=== PATIENT | female | born 1960 | race Caucasian/White ===

== ENCOUNTER → 2017-11-24 | Day surgery (SDC) | payer OTHER ==
[~2017-11-24] VITALS: Ht 167.6 cm; Wt 60.2 kg
[~2017-11-24] MED LIST: ACETAMINOPHEN 1000 MG/100 ML 100 ML IV ONE; ACETAMINOPHEN/HYDROcodone 325 MG/5 MG TAB PO PRN; APREPITANT 40 MG CAP ONE; BUPIVACAINE/EPINEPHRINE 0.5% PF 10 ML VIAL ONE; CHLORHEXIDINE GLUCONATE 2 % 1 PACK (2 CLOTHS) TOPICAL PRN; CYMB30CA PO; DAILTAB38 PO; DEXAMETHASONE SOD PHOS 4 MG/ML VIAL IV ONE; DO NOT ADM ANY ANTICOAGULANT DRUGS PRN; ESTR1TAB PO; FAMOTIDINE 20 MG/2 ML VIAL ONE; GLYCOPYRROLATE 1 MG/5 ML SYRINGE IV PUSH ONE; KETOROLAC TROMETHAMINE 30 MG/ML (IVP) VIAL IV PUSH ONE; KETOROLAC TROMETHAMINE 30 MG/ML (IVP) VIAL IVP PRN; LACTATED RINGER'S 1000 ML INJ 1,000 ML IV ONE; LACTATED RINGER'S 1000 ML INJ 1,000 ML IV SCH; LACTATED RINGER'S 1000 ML IV PRN; LIDOCAINE HCL 1% PF 5 ML SYRINGE OTHER ONE; METOPROLOL TARTRATE 25 MG TAB PO PRN; MIDAZOLAM HCL 2 MG/2 ML VIAL ONE; MORPHINE SULFATE 8 MG/ML INJ IV PUSH PRN; NALOXONE HCL 0.4 MG/ML AMP IV PUSH PRN; NEOSTIGMINE 5 MG/5 ML SYRINGE IV PUSH ONE; ONDANSETRON HCL 4 MG/2 ML VIAL IV ONE; ONDANSETRON ODT 4 MG TAB ONE; ONDANSETRON ODT 4 MG TAB SL PRN; POVIDONE IODINE 5% (ANTISEPSIS KIT) 4 APPLICATIONS EACH NARE PRN; PROPOFOL 200 MG/20 ML AMP IV ONE; Post-op Orders (for Pharmacy) XX ONE; ROCURONIUM INJ 50 MG/5 ML SYRINGE IV PUSH ONE; SODIUM CHLORID 0.9% 500 ML IV PRN; TRAM50TA PO; ceFAZolin 2 GM PREMIX 50 ML ONE; ceFAZolin 2 GM/DEX PREMIX 50 ML IV SCH
[2017-11-24 08:51] LABS: AUTOMATED NEUTROPHIL # 2.1 TH/MM3 (1.8-7.7); BASOPHIL % 0.7 % (0.0-2.0); EOSINOPHIL # 0.2 TH/MM3 (0-0.4); HEMATOCRIT 36.8 % (35.0-46.0); HEMOGLOBIN 12.4 GM/DL (11.6-15.3); LYMPH % 39.6 % (9.0-44.0); LYMPHOCYTE # 1.8 TH/MM3 (1.0-4.8); MEAN CELL VOLUME 88.4 FL (80.0-100.0); MEAN CORPUSCULAR HEMOGLOBIN 29.8 PG (27.0-34.0); MEAN CORPUSCULAR HGB CONC 33.7 % (32.0-36.0); MEAN PLATELET VOLUME 7.1 FL (7.0-11.0); MONO % 8.9 % (0.0-8.0); MONOCYTE # 0.4 TH/MM3 (0-0.9); NEUT % 45.8 % (16.0-70.0); PLATELET COUNT 259 TH/MM3 (150-450); RED BLOOD COUNT 4.17 MIL/MM3 (4.00-5.30); RED CELL DISTRIBUTION WIDTH 13.1 % (11.6-17.2); WHITE BLOOD COUNT 4.5 TH/MM3 (4.0-11.0)
[2017-11-24 09:17] LABS: BICARBONATE 24.5 MEQ/L (21.0-32.0); CALCIUM 8.6 MG/DL (8.5-10.1); CREATININE 0.79 MG/DL (0.50-1.00)
--- NOTE | 2017-11-24 11:22 | MP ---
cc: Ari Boyd MD, Donato R MD DATE OF OPERATION: 11/24/2017 PREOPERATIVE DIAGNOSES: 1. Chronic abdominal pain with a history of small-bowel obstruction x2. 2. Status post hysterectomy and . POSTOPERATIVE DIAGNOSES: 1. Chronic abdominal pain with a history of small-bowel obstruction x2. 2. Status post hysterectomy and . 3. 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 4. Abnormal appendix. 5. No evidence of a pelvic or intra-abdominal adhesions. PROCEDURE PERFORMED: 1. Diagnostic laparoscopy. 2. Laparoscopic appendectomy. SURGEON: Ari Boyd MD ANESTHESIA: General endotracheal. COMPLICATIONS: None. INDICATIONS FOR PROCEDURE: Ms. Washington is a very pleasant 57-year-old female who has had 2 episodes of small-bowel obstruction requiring hospitalization with NG tube decompression. Most recently was about a month ago. The patient reports that since then she has had chronic lower abdominal pain with associated nausea. She has been mostly on a liquid diet for fear of nausea and vomiting. She was seen and evaluated back in the office and offered a diagnostic laparoscopy to evaluate for pelvic adhesions, as she has previously had a hysterectomy and . Risks and benefits of the procedure were discussed with her, and she was agreeable. INTRAOPERATIVE FINDINGS: The patient had a very tortuous abnormal terminal ileum. There were multiple white plaques which appeared to be stricture on the terminal ileum. These were photographed. The patient also had a very shortened abnormal appendix with a white nodule on its distal tip. There was no evidence at all of any pelvic adhesions. The entire small bowel was run and found to be actively peristalsing. The mid ileum was slightly dilated, but not markedly dilated. Proximal jejunum was normal size and caliber and seemed to be actively peristalsing. The patient had a normal-appearing gallbladder. There was a minimal amount of free fluid down the pelvis. Right ovary was clearly seen and appeared to be normal. We elected to go ahead and perform an appendectomy as the appendix was clearly abnormal and may lead to the diagnosis of what is going on with her terminal ileum. DETAILS OF PROCEDURE: The patient was identified, brought to the operating room, placed supine on the operating table. After adequate general endotracheal anesthesia was achieved, the abdomen was prepped and draped in standard surgical fashion. Infraumbilical space anesthetized with 0.25% Marcaine. Infraumbilical incision was made. Dissection was carried down through subcutaneous tissue to midline fascia. Midline fascia was then incised sharply. A finger was then placed in the peritoneal cavity without difficulty. A blunt 5 mm trocar was inserted, and the abdomen was insufflated to 15 mmHg using CO2 gas. Next, two 5 mm trocars were placed in the lower midline under direct vision. The patient was then placed in steep Trendelenburg position. Attention was directed to the pelvis and right lower quadrant. The cecum was noted to be of normal size and caliber. The appendix was clearly abnormal and was very shortened and thickened and had a white nodule on its tip. Attention was then directed to the terminal ileum. The terminal ileum was appeared abnormal as well. There were multiple white plaques which appeared to be causing a stricture and kinking of the terminal ileum in several spots. There were no external adhesions at all noted. Small bowel came out of the pelvis quite easily and there was zero adhesions from her previous hysterectomy. We then ran the small bowel back in a retrograde fashion. The diseased portion of the terminal ileum appeared to be the last 15 cm. There was no evidence of a Meckel's diverticulum. We ran the small bowel back to the ligament of Treitz. The mid jejunum was slightly dilated and fluid filled but seemed to be peristalsing. The proximal jejunum was totally normal and seemed to be peristalsing well and was not dilated. Attention was redirected to the terminal ileum portion, which was photographed at multiple sites. There was no mechanical obstruction that I could visualize. These white strictures appeared to be on the antimesenteric border of the small bowel. At this point, I elected to go ahead and remove the appendix as it was abnormal and it may lead to the diagnosis of what is going on with her terminal ileum. The appendix was quite shortened. It was grasped and the mesentery was taken down with Harmonic scalpel. Once the cecal base was achieved, two 2-0 PDS Endoloops were placed proximally and one was placed distally and the appendix was then divided. EndoCatch bag was then placed and the appendix was removed and sent to pathology for analysis. Next, the stump was irrigated out with 30 mL of normal saline solution. It was then evacuated with the suction device. The pelvis was carefully inspected. Right ovary appeared normal in size and color. There was no evidence of inguinal hernias or femoral hernias. The patient was then placed in the flat position and the small bowel was allowed to return to the pelvis. The omentum was placed over the entire large and small bowel without any problem. Liver and gallbladder were identified and photographed. The stomach was identified and photographed. Again, no other gross abnormalities were noted within the abdominal cavity and the patient had zero intraabdominal adhesions. At this point, we terminated the procedure. All trocars were removed under direct vision. Midline fascia was repaired with 0 Vicryl. Skin was closed with 4-0 Monocryl. The patient tolerated the procedure well, was awakened, extubated and brought to recovery in stable condition. MD PATRICIA Garnett/JESÚS , 10:39 AM , 11:21 AM
[2017-11-24 12:20] VITALS: BP 102/60; PULSE 54; RESP 18; TEMP 97.1; O2SAT 100
--- NOTE | 2017-11-24 15:12 | EKG ---
Date Performed: 11/24/2017 Time Performed: 08:14:17 PTAGE: 57 years EKG: SINUS BRADYCARDIA WITH OCCASIONAL SUPRAVENTRICULAR PREMATURE COMPLEXES POSSIBLE LEFT ATRIAL ENLARGEMENT POSSIBLE RIGHT VENTRICULAR CONDUCTION DELAY BORDERLINE ECG NO PREVIOUS TRACING DOCTOR: Natalia Ellison Interpretating Date/Time 11/24/2017 15:11:44
== END | disposition home or self-care (01) ==
LOC: HSDC 07:53
PROVIDERS: ATTEND Surgery Trauma Surgery
DX: K38.8 Other specified diseases of appendix (principal); N80.5 Endometriosis of intestine; R10.31 Right lower quadrant pain; G89.29 Other chronic pain; K56.609 Unspecified intestinal obstruction, unspecified as to partial versus complete obstruction; R94.31 Abnormal electrocardiogram [ECG] [EKG]; Z90.710 Acquired absence of both cervix and uterus
CPT/HCPCS: 00840; 44970; 80048; 85025; 88304; 93005; J0131; J0690; J1100; J1885; J2250; J2405; J2710; J3010; J7120; J8501